=== PATIENT | female | born 1990 | race Two or more races ===

== ENCOUNTER → 2022-07-04 | Emergency (ER) | payer OTHER ==
[~2022-07-04] VITALS: Ht 172.7 cm; Wt 70.8 kg
[~2022-07-04] MED LIST: AZITHROMYCIN500 MG PO; TUSICOF LIQUID120 ML PO
== END | disposition home or self-care (01) ==
LOC: ER 20:47
DX: B34.8 Other viral infections of unspecified site (principal); Z20.822 Contact with and (suspected) exposure to COVID-19

== ENCOUNTER → 2022-10-01 | Outpatient (CLI) | payer OTHER | END | disposition home or self-care (01) | LOC: SONOGRAMA 10:25 | PROVIDERS: ATTEND Pathology Anatomic Pathology & Clinical Pathology | DX: D44.0 Neoplasm of uncertain behavior of thyroid gland (principal); D34 Benign neoplasm of thyroid gland; E04.9 Nontoxic goiter, unspecified; E07.9 Disorder of thyroid, unspecified; E04.2 Nontoxic multinodular goiter; R22.1 Localized swelling, mass and lump, neck ==